=== PATIENT | female | born 1985 | race Caucasian/White ===

== ENCOUNTER 2017-10-17 13:45 | Emergency (ER) | payer MEDICAID ==
[2017-10-17 13:45] VITALS: BMI 31.6
[2017-10-17 14:00] VITALS: BP 129/85; PULSE 100; RESP 18; TEMP 98.6; O2SAT 100
--- NOTE | 2017-10-17 14:25 | C.PDOC ---
History Of Present Illness 31 year old female patient presents to the ER with right ear pain for 3 days. Patient reports she put aloe vera and alcohol with no relief. Patient denies change in hearing, ear discharge, headache, neck pain, rash, and fever. 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, PSYCHOEDUCATION (10/04/15) GROUP PSYCHOTHERAPY (10/18/15) INDIVID PSYCHOTHERAP NEC (11/18/13) INDIVIDUAL PSYCHOTHERAPY, BEHAVIORAL (08/21/15) INDIVIDUAL PSYCHOTHERAPY, COGNITIVE-BEHAVIORAL (10/18/15) INDIVIDUAL PSYCHOTHERAPY, SUPPORTIVE (09/06/15) OTHER GROUP THERAPY (11/18/13) PSYCHIA INTERV/EVAL NEC (09/05/12) Family History: States: Unknown Family Hx - Social History Hx Tobacco Use: No Hx Alcohol Use: No Hx Substance Use: No - Immunization History Hx Tetanus Toxoid Vaccination: No Hx Influenza Vaccination: No Hx Pneumococcal Vaccination: No Review Of Systems Except As Marked, All Systems Reviewed And Found Negative. Constitutional: Negative for: Fever ENT: Positive for: Ear Pain (right ear). Negative for: Ear Discharge, Other ( change in hearing) Physical Exam - Physical Exam Appears: Well, Non-toxic, No Acute Distress Skin: Normal Color, Warm, Dry Head: Atraumatic, Normacephalic Eye(s): bilateral: Normal Inspection, EOMI Ear(s): Left: Normal, Right: Other ((+) exudate in ear canal; tragus tenderness ; no mastoid tenderness; TM not visualized) Nose: Normal Oral Mucosa: Moist Throat: Normal, No Erythema, No Exudate Neck: Normal ROM, Supple Chest: Symmetrical Cardiovascular: Rhythm Regular Respiratory: Normal Breath Sounds, No Accessory Muscle Use Extremity: Normal ROM Neurological/Psych: Oriented x3, Normal Speech Gait: Steady ED Course And Treatment O2 Sat by Pulse Oximetry: 100 (RA) Pulse Ox Interpretation: Normal Progress Note: . Patient instructed to f/u with ENT in 1-2 days. Disposition - Disposition Referrals: Marty Daniels MD [Staff Provider] - Disposition: HOME/ ROUTINE Disposition Time: 14:24 Condition: STABLE Additional Instructions: Follow up with your primary medical doctor or clinic in 2-5 days for further evaluation. Take medications as prescribed. Return to the emergency department at any time if symptoms persist or worsen. Prescriptions: Amoxicillin 875 mg PO BID #14 tablet Neomycin/Polymyxin/Hydrocortis [Cortisporin Otic Susp] 4 drop OT TID #1 bottle Instructions: Outer Ear Infection (DC) Forms: [employer] (Chinese) - Clinical Impression Clinical Impression: Otitis externa - PA / [employer]DROP[employer]OWER / Resident Statement / has reviewed & agrees with the documentation as recorded. - Scribe Statement The provider has reviewed the documentation as recorded by the Rosetta Olivarez Do All medical record entries made by the Scribe were at my direction and personally dictated by me. I have reviewed the chart and agree that the record accurately reflects my personal performance of the history, physical exam, medical decision making, and the department course for this patient. I have also personally directed, reviewed, and agree with the discharge instructions and disposition.
== END 2017-10-17 14:30 | disposition home or self-care (01) ==
LOC: C.ER 13:45
DX: H60.91 Unspecified otitis externa, right ear (principal)